=== PATIENT | female | born 1970 | race Caucasian/White ===

== ENCOUNTER → 2017-01-24 | Day surgery (SDC) | payer BC, SELFPAY ==
[~2017-01-24] MED LIST: Midazolam 1 MG/ML 2 ML SDV ONE; Propofol 200 MG/20 ML SDV ONE; Sodium Chloride 0.9% 1,000 ML IV SCH; fentaNYL 100 MCG/2 ML SDV ONE
[2017-01-24 11:52] VITALS: BP 121/72
--- NOTE | 2017-01-24 18:07 | OR ---
DATE OF PROCEDURE: 01/24/2017 PROCEDURE: Esophagogastroduodenoscopy. FINDINGS: Inflammation at GE junction consistent with reflux disease. PREOPERATIVE DIAGNOSIS: Epigastric pain. POSTOPERATIVE DIAGNOSIS: Epigastric pain. ANESTHESIA: MAC. COMPLICATIONS: None. RISK: Risks, benefits, alternatives, limitations including, but not limited to infection, bleeding, and perforation were explained to the patient and wished to proceed. PROCEDURE IN DETAIL: The patient was placed in left lateral decubitus position. The EGD scope was introduced and advanced atraumatically to the second part of the duodenum. No duodenitis. No gastritis. No gastric ulcer. No hiatal hernia. On retroflex, no hiatal hernia was again noted. At the GE junction, there was inflammation consistent with reflux disease. This was biopsied multiple times using cold biopsy forceps. The remainder of the esophagus was normal. The patient tolerated the procedure well. Danyel Buchanan MD /[id number]
== END ==
LOC: JP.SDS 08:30
PROVIDERS: ATTEND Surgery
DX: K21.0 Gastro-esophageal reflux disease with esophagitis (principal); K31.89 Other diseases of stomach and duodenum; E78.5 Hyperlipidemia, unspecified; F32.9 Major depressive disorder, single episode, unspecified; Z91.09 Other allergy status, other than to drugs and biological substances
CPT/HCPCS: 43239; J2250; J2704; J3010; J7040; 88305

== ENCOUNTER 2017-03-06 07:21 | Day surgery (SDC) | payer BC, SELFPAY ==
[2017-03-06] MEDS ORDERED: Sodium Chloride 0.9% 1,000 ML IV SCH (08:00)
[2017-03-06] MEDS ORDERED: Midazolam 1 MG/ML 2 ML SDV ONE (08:18)
[2017-03-06] MEDS ORDERED: Propofol 200 MG/20 ML SDV ONE ×2 (08:18→08:58)
[2017-03-06] MEDS ORDERED: fentaNYL 100 MCG/2 ML SDV ONE (08:18)
[2017-03-06] MEDS ORDERED: Glycopyrrolate 0.2 MG/ML 2 ML SDV IVPUSH ONE (08:45)
[2017-03-06] MEDS ORDERED: Albuterol/Ipratropium 3.0-0.5 MG/3 ML Neb Soln NEB ONE (08:45)
[2017-03-06] MEDS ORDERED: Acetylcysteine 600 MG, Water For Injection,Sterile 57 ML ONE ×2 (09:00)
[2017-03-06] MEDS ORDERED: Alum Hydrox/Mag Hydrox/Simeth 360 ML, Lidocaine 2% 60 ML PO PRN ×2 (09:40)
[2017-03-06 10:15] VITALS: BP 100/66
--- NOTE | 2017-03-10 08:22 | OR ---
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 UNEMPLOYMENT SPECIALIST: None. RISK: Risks, benefits, alternatives, and limitations including, but not limited to infection, bleeding, and perforation along with chronic pain, were explained to the patient, and she wished to proceed. PROCEDURE IN DETAIL: The patient was placed in left lateral decubitus position, and vital sign monitoring equipment was connected in the usual manner. IV sedation was administered. The EGD was introduced with identification of top of the intestinal metaplasia at the top of the gastric folds. The distance from the bite block to each of the anatomical landmarks was recorded, and the total length of the intestinal metaplasia was calculated from these measurements. These landmarks were located as follows: Top of intestinal metaplasia is 43, top of the gastric folds is 41. The Lopez's esophagus tissue was irrigated with N-acetylcysteine (Mucomyst) and mixed with plain water. A guide wire was placed in the esophagus, and the scope was removed. A Plusmo 360 express RFA balloon catheter was introduced over the guidewire. Endoscope was introduced in a [id number] manner with the balloon catheter. The balloon electrode was positioned under direct visualization, so that the proximal edge of the electrode was slightly above the top of the intestinal metaplasia. The balloon was automatically inflated and energy applied at 230 travis of 10 joules per sq cm. The displayed inner diameter of the measurement was recorded. The electrode was not fired a second time, due to the single 2 cm area of required ablation. The balloon catheter was removed, cleaned, and reintroduced. The ablation zone was cleaned of coagulated debris with irrigation and suction using the endoscope and cleaning cap. The balloon catheter was positioned under direct visualization so that the proximal edge of the electrode was at the proximal edge of the ablation zone. Inflation, ablation, and repositioning were repeated, as in the first sets of treatment. Balloon catheter and guidewire were removed. The EGD confirmed ablation of all of the intestinal metaplasia. The patient tolerated the procedure well. Danyel Buchanan MD /[id number]
== END 2017-03-06 10:30 | disposition home or self-care (01) ==
LOC: JP.SDS 07:21
PROVIDERS: ATTEND Surgery
DX: K22.70 Barrett's esophagus without dysplasia (principal)
CPT/HCPCS: 43270; A9270; C1713; C1886; J2250; J2704; J3010; J7040; J7620; J3490

== ENCOUNTER 2017-04-29 07:12 | Day surgery (SDC) | payer BC ==
[2017-04-29] MEDS ORDERED: Sodium Chloride 0.9% 1,000 ML IV SCH (07:15)
[2017-04-29] MEDS ORDERED: fentaNYL 100 MCG/2 ML SDV ONE (07:30)
[2017-04-29] MEDS ORDERED: Propofol 200 MG/20 ML SDV ONE (07:30)
[2017-04-29] MEDS ORDERED: Midazolam 1 MG/ML 2 ML SDV ONE (07:30)
[2017-04-29] MEDS ORDERED: Glycopyrrolate 0.2 MG/ML 2 ML SDV ONE (08:43)
[2017-04-29] MEDS ORDERED: Acetylcysteine 600 MG, Water For Injection,Sterile 57 ML ONE ×2 (09:00)
[2017-04-29] MEDS ORDERED: Alum Hydrox/Mag Hydrox/Simeth 360 ML, Lidocaine 2% 60 ML PO SCH ×2 (09:00)
[2017-04-29 10:22] VITALS: BP 105/62
--- NOTE | 2017-04-30 09:46 | OR ---
DATE OF PROCEDURE: 04/29/2017 PROCEDURE: Barrx ablation of Lopez's esophagus. COMPLICATIONS: None. MACHINE CAPTAIN: None. ANESTHESIA: MAC. FINDINGS: Improvement of the Lopez's noted at 37 cm for top of intestinal metaplasia and top of gastric folds noted at 36 cm. PREOPERATIVE DIAGNOSIS: Lopez's esophagus. POSTOPERATIVE DIAGNOSIS: Lopez's esophagus. RISKS: Risks, benefits, alternatives, limitations including, but not limited to infection, bleeding, and perforation explained to the patient, along with chronic pain. The patient understands these risks, wished to proceed. PROCEDURE IN DETAIL: The patient was placed in the left lateral decubitus position. The EGD scope was introduced atraumatically. The TGF and DARYN were measured as described above. A guidewire was then introduced, after Mucomyst was applied. The Barrx balloon, 360, RFA was introduced and placed approximately 1 cm above the DARYN. This was then deployed using the automated insufflation, suction was applied, and then the RFA energy was applied. The guidewire device and scope were then removed. The scraping device was then placed on the distal aspect of the EGD scope, and this was then reintroduced and removal of the ablated material was noted. A very minimal bleeding was noted and no evidence of abnormality. The guidewire was then reintroduced. The balloon was then re-passed and ablation was performed again with approximately 1 cm more proximal location of the balloon. Once this was deployed in the same technique as described before, the scope was introduced and no abnormalities were noted. The procedure was terminated. The patient tolerated the procedure well. Danyel Buchanan MD /[id number]
== END 2017-04-29 10:30 | disposition home or self-care (01) ==
LOC: JP.SDS 07:12
PROVIDERS: ATTEND Surgery
DX: K22.70 Barrett's esophagus without dysplasia (principal); F17.200 Nicotine dependence, unspecified, uncomplicated; Z91.048 Other nonmedicinal substance allergy status
CPT/HCPCS: 43270; A9270; C1713; C1886; J2250; J2704; J3010; J7040; J3490

== ENCOUNTER 2017-06-24 08:51 | Day surgery (SDC) | payer BC, SELFPAY ==
[~2017-06-24 08:51] MED LIST changes: +Acetylcysteine 600 MG, Water For Injection,Sterile 57 ML ONE; +Alum Hydrox/Mag Hydrox/Simeth 360 ML, Lidocaine 2% 60 ML PO SCH; -Midazolam 1 MG/ML 2 ML SDV ONE; -Propofol 200 MG/20 ML SDV ONE; -fentaNYL 100 MCG/2 ML SDV ONE
[2017-06-24] MEDS ORDERED: fentaNYL 100 MCG/2 ML SDV ONE (09:18)
[2017-06-24] MEDS ORDERED: Propofol 200 MG/20 ML SDV ONE (09:18)
[2017-06-24] MEDS ORDERED: Midazolam 1 MG/ML 2 ML SDV ONE (09:18)
[2017-06-24 11:40] VITALS: BP 120/80
--- NOTE | 2017-06-25 09:47 | OR ---
DATE OF PROCEDURE: 06/24/2017 PROCEDURE: Barrx radiofrequency ablation of distal esophagus. FINDINGS: Small remnant tongue of reflux noted between 36 and 38 cm from the bite block. PREOPERATIVE DIAGNOSIS: Lopez's esophagus. POSTOPERATIVE DIAGNOSIS: Lopez's esophagus. RISKS: Risks, benefits, alternatives, limitations including, but not limited to infection, bleeding, chronic pain, and perforation were explained to the patient, who wished to proceed. PROCEDURE IN DETAIL: The patient was placed in left lateral decubitus position. The EGD scope was introduced and advanced atraumatically into second part of the duodenum. No abnormalities were noted. At 38 cm, the top of the gastric folds were noted, and at 36 cm, the top of the intestinal metaplasia was noted. Compared to previous procedures, this was mild in nature. Therefore, the focal 90-degree ablation technique would be performed. This was used, after Mucomyst was noted. This was thoroughly irrigated via the Mucomyst, and ablation was performed in a 360 degree circumferential fashion, especially paying attention to ablate the aforementioned area, which was at approximately 3 o'clock. After this, this was scraped and then repeated a second time. No abnormal bleeding or abnormalities were noted. The procedure was then terminated. The patient tolerated the procedure well. Danyel Buchanan MD /[id number]
== END 2017-06-24 11:50 | disposition home or self-care (01) ==
LOC: JP.SDS 08:51
PROVIDERS: ATTEND Surgery
DX: K22.70 Barrett's esophagus without dysplasia (principal); I10 Essential (primary) hypertension; K21.9 Gastro-esophageal reflux disease without esophagitis; F32.9 Major depressive disorder, single episode, unspecified; F17.200 Nicotine dependence, unspecified, uncomplicated; Z91.09 Other allergy status, other than to drugs and biological substances; Z79.899 Other long term (current) drug therapy
CPT/HCPCS: 43270; A9270; J2250; J2704; J3010; J7040; J7030

== ENCOUNTER 2017-08-19 07:47 | Day surgery (SDC) | payer BC, OTHER ==
[~2017-08-19 07:47] MED LIST changes: -Acetylcysteine 600 MG, Water For Injection,Sterile 57 ML ONE; -Alum Hydrox/Mag Hydrox/Simeth 360 ML, Lidocaine 2% 60 ML PO SCH; +Midazolam 1 MG/ML 2 ML SDV ONE; +Propofol 200 MG/20 ML SDV ONE; -Sodium Chloride 0.9% 1,000 ML IV SCH; +fentaNYL 100 MCG/2 ML SDV ONE
[2017-08-19] MEDS ORDERED: Lactated Ringers 1,000 ML IV SCH (08:15)
[2017-08-19] MEDS ORDERED: Acetylcysteine 600 MG, Water For Injection,Sterile 57 ML ONE ×2 (09:00)
[2017-08-19 10:01] VITALS: BP 107/70
--- NOTE | 2017-08-20 09:43 | OR ---
DATE OF PROCEDURE: 08/19/2017 PROCEDURE: EGD with biopsies of the EG junction. PREOPERATIVE DIAGNOSIS: History of Lopez's esophagus. POSTOPERATIVE DIAGNOSIS: History of Lopez's esophagus. COMPLICATION: None. CARPET INSPECTOR FINISHED: None. ANESTHESIA: MAC. RISKS: Risks, benefits, alternatives, limitations including, but not limited to infection, bleeding, and perforation were explained to the patient, and they wished to proceed. PROCEDURE IN DETAIL: The patient was placed in left lateral decubitus position. The EGD scope was introduced and advanced into the stomach. The previous Lopez's esophagus appeared to be fully ablated. Biopsies x6 in the GE junction was performed without abnormality. No other abnormalities were noted. The patient tolerated the procedure well. Danyel Buchanan MD /[id number]
== END 2017-08-19 10:15 | disposition home or self-care (01) ==
LOC: JP.SDS 07:47
PROVIDERS: ATTEND Surgery
DX: K22.70 Barrett's esophagus without dysplasia (principal); F32.9 Major depressive disorder, single episode, unspecified; E66.9 Obesity, unspecified; F17.210 Nicotine dependence, cigarettes, uncomplicated; Z91.09 Other allergy status, other than to drugs and biological substances
CPT/HCPCS: 88305; J2250; J2704; J3010; J7120

== ENCOUNTER 2018-06-07 13:25 | Emergency (ER) | payer BC ==
[2018-06-07 14:16] VITALS: BP 146/69
[2018-06-07] MEDS ORDERED: Ondansetron 4 MG/2 ML SDV IVPUSH ONE (14:43)
[2018-06-07] MEDS ORDERED: Pantoprazole 40 MG Vial IVPUSH ONE (14:44)
[2018-06-07] MEDS ORDERED: Sodium Chloride 0.9% 1,000 ML IV SCH (14:45)
--- NOTE | 2018-06-07 14:48 | EDM.PDOC ---
ED HPI GENERAL MEDICAL PROBLEM - General Chief Complaint: Abdominal Pain Stated Complaint: NAUSEA, ABD PAIN Time Seen by Provider: 06/07/18 14:45 Source of Information: Reports: Patient History Limitations: Reports: No Limitations - History of Present Illness INITIAL COMMENTS - FREE TEXT/NARRATIVE: pt was scheduled for a ludivina just before Alondra madison was not able to have it because a spot was found on her lung and she needs another pet scan. Onset: Today, Sudden, Other ( she did start to have some problems at work last nite. ) Duration: Hour(s): Location: Reports: Abdomen Associated Symptoms: Reports: Nausea/Vomiting - Related Data Allergies Allergy/AdvReac Type Severity Reaction Status Date / Time adhesive tape Allergy Cannot Verified 06/07/18 14:16 Remember Home Meds: Home Meds Losartan [Cozaar] 50 mg PO DAILY 01/23/17 [History] Omeprazole 40 mg PO DAILY 01/23/17 [History] Albuterol [Ventolin HFA] 2 puff INH QID 05/05/18 [History] Past Medical History HEENT History: Reports: Impaired Vision Cardiovascular History: Reports: Hypertension Respiratory History: Reports: Bronchitis, Recurrent Gastrointestinal History: Reports: GERD, Other (See Below) Other Gastrointestinal History: barretts esophagus Genitourinary History: Reports: Other (See Below) Other Genitourinary History: OVARIAN CYSTS TECHNICIAN BIOLOGICAL HEALTH History: Reports: Polycystic Ovaries, Musculoskeletal History: Reports: Other (See Below) Other Musculoskeletal History: degenertive disc disease Neurological History: Reports: None Psychiatric History: Reports: Other (See Below) Other Psychiatric History: learning disability Endocrine/Metabolic History: Reports: Obesity/BMI 30+ Hematologic History: Reports: None Immunologic History: Reports: None Oncologic (Cancer) History: Reports: None Dermatologic History: Reports: None - Infectious Disease History Infectious Disease History: Reports: Chicken Pox - Past Surgical History Head Surgeries/Procedures: Reports: None HEENT Surgical History: Reports: Other (See Below) Other HEENT Surgeries/Procedures: deviated septum Cardiovascular Surgical History: Reports: None Respiratory Surgical History: Reports: None GI Surgical History: Reports: EGD Female Surgical History: Reports: Breast Biopsy, Section, Tubal Ligation Endocrine Surgical History: Reports: None Neurological Surgical History: Reports: None Musculoskeletal Surgical History: Reports: None Dermatological Surgical History: Reports: None Social & Family History - Family History Family Medical History: Noncontributory - Tobacco Use Smoking Status *Q: Current Every Day Smoker Years of Tobacco use: 35 Packs/Tins Daily: 1 - Caffeine Use Caffeine Use: Reports: Coffee ED ROS GENERAL - Review of Systems Review Of Systems: See Below Constitutional: Reports: Decreased Appetite HEENT: Reports: No Symptoms Respiratory: Reports: No Symptoms Cardiovascular: Reports: No Symptoms Endocrine: Reports: No Symptoms GI/Abdominal: Reports: Nausea, Vomiting : Reports: No Symptoms Musculoskeletal: Reports: No Symptoms Skin: Reports: No Symptoms ED EXAM, GI/ABD - Physical Exam Exam: See Below Text/Narrative:: pt had been feeling like she has been haing reflux. She is wretching and vomiting at this time. She was to have a Ludivina and then a spot was found on the lung which ids being worked up. She will follow up with Dr Buchanan. Exam Limited By: No Limitations General Appearance: Alert, Moderate Distress, Other (pupils are equal and reactive. ) Ears: Normal TMs Nose: Normal Inspection Throat/Mouth: Normal Inspection Head: Atraumatic Neck: Normal Inspection Respiratory/Chest: No Respiratory Distress Cardiovascular: Regular Rate, Rhythm GI/Abdominal Exam: Other (mild tenderness in the epigastric area. ) (Female) Exam: Deferred Rectal (Female) Exam: Deferred Back Exam: Normal Inspection Extremities: Normal Inspection Neurological: Alert, Oriented, Normal Cognition Course - Vital Signs Last Recorded V/S: Last Vital Signs Temp 35.8 C 06/07/18 14:22 Pulse 74 06/07/18 14:22 Resp 16 06/07/18 14:22 BP 146/69 H 06/07/18 14:22 Pulse Ox 96 06/07/18 14:22 - Orders/Labs/Meds Orders: Active Orders 24 hr Category Date Time Status Sodium Chloride 0.9% [Normal Saline] 1,000 ml Med 06/07/18 14:45 Active IV ASDIRECTED Medication Orders Sodium Chloride (Normal Saline) 1,000 mls @ 999 mls/hr IV ASDIRECTED SUZAN Last Admin: 06/07/18 15:18 Dose: 999 mls/hr Labs: Laboratory Tests 06/07/18 06/07/18 Range/Units 14:55 14:55 WBC 6.5 (4.5-11.0) K/uL RBC 4.62 (3.30-5.50) M/uL Hgb 13.9 (12.0-15.0) g/dL Hct 41.4 (36.0-48.0) % MCV 90 (80-98) fL MCH 30 (27-31) pg MCHC 34 (32-36) % Plt Count 169 (150-400) K/uL Neut % (Auto) 68 H (36-66) % Lymph % (Auto) 22 L (24-44) % Ramsey % (Auto) 7 H (2-6) % Eos % (Auto) 2 (2-4) % Baso % (Auto) 1 (0-1) % Sodium 142 (140-148) mmol/L Potassium 4.0 (3.6-5.2) mmol/L Chloride 105 (100-108) mmol/L Carbon Dioxide 27 (21-32) mmol/L Anion Gap 9.7 (5.0-14.0) mmol/L BUN 13 (7-18) mg/dL Creatinine 0.8 (0.6-1.0) mg/dL Est Cr Clr Drug Dosing 82.72 mL/min Estimated GFR (MDRD) > 60 (>60) Glucose 104 (74-106) mg/dL Calcium 9.1 (8.5-10.1) mg/dL Total Bilirubin 0.3 (0.2-1.0) mg/dL AST 23 (15-37) U/L ALT 38 (12-78) U/L Alkaline Phosphatase 106 (46-116) U/L Total Protein 7.3 (6.4-8.2) g/dL Albumin 3.6 (3.4-5.0) g/dL Globulin 3.7 H (2.3-3.5) g/dL Albumin/Globulin Ratio 1.0 L (1.2-2.2) Lipase 108 (73-393) U/L Meds: Medications Generic Name Dose Route Start Last Admin Trade Name Freq PRN Reason Stop Dose Admin Sodium Chloride 1,000 mls @ 999 mls/hr 06/07/18 14:45 06/07/18 15:18 Normal Saline IV 999 mls/hr ASDIRECTED SUZAN Administration Discontinued Medications Generic Name Dose Route Start Last Admin Trade Name Freq PRN Reason Stop Dose Admin Ondansetron HCl 4 mg 06/07/18 14:43 06/07/18 15:17 Zofran IVPUSH 06/07/18 14:44 4 mg ONETIME ONE Administration Pantoprazole Sodium 40 mg 06/07/18 14:44 06/07/18 15:18 Protonix Iv IVPUSH 06/07/18 14:45 40 mg ONETIME ONE Administration - Re-Assessments/Exams Free Text/Narrative Re-Assessment/Exam: 06/07/18 16:03 pt has normal lab work and she is feeling better. The nausea has improved. She was given iv protonix and zoforan. Departure - Departure Time of Disposition: 15:59 Disposition: Home, Self-Care 01 Condition: Fair Clinical Impression: Reflux esophagitis, Dehydration - Discharge Information Instructions: Dehydration, Adult, [id number], Gastroesophageal Reflux Disease , Adult, [id number] Referrals: PCP,None [Primary Care Provider] - Forms: ED Department Discharge Care Plan Goals: double up on prilosec for 1 week, follow up with Dr Buchanan, no work today and tomorrow then may return, zoforan 4mg q6h prn for nause--subling. - My Orders Last 24 Hours: My Active Orders 06/07/18 14:45 Sodium Chloride 0.9% [Normal Saline] 1,000 ml IV ASDIRECTED - Assessment/Plan Last 24 Hours: My Active Orders 06/07/18 14:45 Sodium Chloride 0.9% [Normal Saline] 1,000 ml IV ASDIRECTED
== END 2018-06-07 16:13 | disposition home or self-care (01) ==
LOC: JP.ED 13:25
DX: K21.0 Gastro-esophageal reflux disease with esophagitis (principal); E86.0 Dehydration; I10 Essential (primary) hypertension; E66.9 Obesity, unspecified; F17.210 Nicotine dependence, cigarettes, uncomplicated; Z98.51 Tubal ligation status; Z91.09 Other allergy status, other than to drugs and biological substances; Z79.899 Other long term (current) drug therapy
CPT/HCPCS: 36415; 80053; 83690; 85025; 96361; 96374; 96375; 99284; C9113; J2405; J7030